=== PATIENT | male | born 1990 | race Caucasian/White ===

== ENCOUNTER 2023-11-03 06:12 | Emergency (ER) | payer SELFPAY ==
[~2023-11-03] VITALS: Ht 170.2 cm; Wt 91.0 kg
[2023-11-03] MEDS ORDERED: BACTRIM DS TAB1 EACH PO (06:42)
[2023-11-03 06:51] VITALS: BP 155/87
== END 2023-11-03 06:51 | disposition home or self-care (01) ==
LOC: ED 06:12
DX: L03.115 Cellulitis of right lower limb (principal)
CPT/HCPCS: A9270